=== PATIENT | male | born 1965 | race African-American/Black ===

== ENCOUNTER 2021-11-03 04:54 | Emergency (ER) | payer BC, SELFPAY ==
--- NOTE | ~2021-11-03 | CT_ITS ---
EXAMINATION: CT brain wo con EXAM DATE: 11/03/2021 05:18 INDICATION: Dizziness. TECHNIQUE: Spiral CT of the head was performed without contrast. Axial, coronal and sagittal images were reviewed. The dose-length product (DLP) for this examination was 605.33 mGy-cm. The exposure w as tailored according to patient size, and iterative reconstruction (ASIR) was used as additional dos e reduction technique. There is no prior study for comparison. FINDINGS: There is no acute intraparenchymal hemorrhage. No evidence of intraparenchymal brain mass lesion. No evidence of acute infarction. There is no mass effect or midline shift. The ventricles are normal in size. There are no extra-axial collections. There are no acute calvarial fractures. T he orbits are unremarkable. Soft tissue is unremarkable. The visualized sinuses and mastoid air diego ls are well aerated. IMPRESSION: 1. No acute intracranial findings. Reviewed, dictated and finalized at location A.
[2021-11-03 04:56] VITALS: BP 157/93; PULSE 62; RESP 20; O2SAT 100
[2021-11-03] MEDS: MECLIZINE HCL 25 MG TABLET PO (05:17)
--- NOTE | 2021-11-03 05:19 | PC.NURSE ---
Pt has visitor from work. Visitor states he is from pts work and says that the patient is in the middle of a drug test and can not receive any medications to alter the results. Pt is aware and states he does not want any medications to immpact the test.
[2021-11-03 05:47] VITALS: PULSE 64; RESP 22; O2SAT 100
--- NOTE | 2021-11-03 05:55 | ED.DIZZY ---
HPI - Dizziness General Chief Complaint: Dizziness Stated Complaint: DIZZINESS Time Seen by Provider: 11/03/21 04:56 Source: patient History of Present Illness HPI Narrative: 56-year-old male presented to the emergency department for onset of vertigo symptoms. Patient does have a prior history of vertigo. Patient states while he was at work he had onset of dizziness. Patient does not feel like he is going to pass out but does describe a sensation of spinning. Patient states the symptoms are improved when he closes his eyes. Patient denies any associated numbness or weakness. Patient does have some associated nausea without vomiting. Patient denies any ear pain or headache. Related Data Allergies Allergy/AdvReac Type Severity Reaction Status Date / Time No Known Allergies Allergy Verified 11/03/21 05:02 Review of Systems Review of Systems: CONSTITUTIONAL: Denies fever, chills, or sweats. EYES: Denies visual changes, redness, or discharge. ENT: Denies rhinorrhea, congestion, sore throat, or otalgia. CARDIOVASCULAR: Denies chest pain, palpitations, or edema. RESPIRATORY: Denies cough or dyspnea. GASTROINTESTINAL: Denies abdominal pain, nausea, vomiting, or diarrhea. GENITOURINARY: Denies dysuria or hematuria. SKIN: Denies rash or itching. MUSCULOSKELETAL: Denies back pain, joint pain, or myalgia. NEUROLOGIC: Vertigo, worsened with eyes open All systems reviewed & are unremarkable except as noted in HPI and below Exam Narrative: APPEARANCE: Well appearing, no pain, no distress, well-nourished. HEAD: normocephalic, atraumatic. EYES: PERRLA/EOMI, conjunctivae clear. NOSE: Normal no drainage EARS:TMS clear with good light reflex. THROAT: Pharynx clear, no exudate. NECK: Supple. No adenopathy, no masses. RESPIRATORY: Airway patent, respirations nonlabored. Clear to auscultation bilaterally, no rales, rhonchi, wheezing. CARDIOVASCULAR: Regular rate and rhythm without murmurs rubs or gallops. ABDOMINAL: Soft, nontender, nondistended, normal bowel sounds MUSCULOSKELETAL: Moves all extremities. Strength/ROM intact, No edema, No calf tenderness. NEURO: Alert. Cranial nerves II through XII intact. Good gait. Good coordination SKIN: Warm, dry. Normal Color Course Course Emergency Course: Patient felt improved with treatment emergency room. Patient was able to ambulate in the ED without issue. Head CT showed no acute intracranial abnormality. Patient was educated on treatment of the vertigo with meclizine and encouraged to have close follow-up with neurology. Symptoms are consistent with benign positional vertigo. Patient was also warned that he was a fall risk. Patient was comfortable with the plan for discharge to home. Vital Signs Vital signs: Vital Signs Pulse Rate 62 11/03/21 04:56 Respiratory Rate 20 11/03/21 04:56 Blood Pressure 157/93 H 11/03/21 04:56 Pulse Oximetry 100 11/03/21 04:56 Pulse Rate 73 11/03/21 06:03 Respiratory Rate 18 11/03/21 06:03 Blood Pressure 161/89 H 11/03/21 06:02 Pulse Oximetry 100 11/03/21 06:03 MDM - Dizziness Imaging Data Radiologist's impression: stat rad CT head impression No acute or focal intracranial abnormality. Discharge Plan Discharge Clinical Impression: Vertigo Patient Disposition: Home, Self-Care Condition: Stable Instructions: Antibiotic Form, Vertigo (ED) Additional Instructions: Meclizine as directed for vertigo. Have close follow-up with your primary care physician and additionally you may need follow-up with neurology. If you have any worsening symptoms or if you have any questions or concerns and please call or return to the emergency department. You may continue to be dizzy over the next few days so be cautious to avoid injury. Prescriptions: New meclizine 25 mg tablet 25 mg PO TID Qty: 20 RF: 0 Follow-up/Referrals: Aly Davidson MD [Primary Care Provider] -
[2021-11-03 06:00] VITALS: PULSE 79; RESP 15; O2SAT 100
[2021-11-03 06:02] VITALS: BP 161/89; PULSE 76; RESP 24; O2SAT 99
[2021-11-03 06:03] VITALS: PULSE 73; RESP 18; O2SAT 100
== END 2021-11-03 06:30 | disposition home or self-care (01) ==
PROVIDERS: Emergency Provider Emergency Medicine; PCP Family Medicine
DX: R42 Dizziness and giddiness (principal)
CPT/HCPCS: 70450; 99284; A9270